=== PATIENT | female | born 1945 | race Caucasian/White ===

== ENCOUNTER → 2018-07-17 | Outpatient (CLI) | payer OTHER | END | disposition home or self-care (01) | LOC: PCVCCLINIC 13:17 | PROVIDERS: ATTEND Internal Medicine Cardiovascular Disease | DX: I10 Essential (primary) hypertension (principal); E78.00 Pure hypercholesterolemia, unspecified; Z82.49 Family history of ischemic heart disease and other diseases of the circulatory system | CPT/HCPCS: 36415; 80061; 93005; G0463 ==

== ENCOUNTER → 2018-07-21 | Outpatient (CLI) | payer OTHER ==
--- NOTE | 2018-07-21 15:56 | PCVCIMAG ---
APPROVED REPORT Study performed: 07/21/2018 13:50:30 Exam: Stress Echocardiogram Indication: Dyspnea, murmur, fam hx cad, 1st degree AV block Patient Location: Echo lab Stress Nurse: Lea Bernal RN Status: routine Ht: 5 ft 0 in HR: 62 bpm BP: 158/90 mmHg Rhythm: NSR, First degree AV Block Procedure The patient underwent an Exercise Stress Test using the Rik Protocol. Blood pressure, heart rate, and EKG were monitored. An Echocardiogram was performed by refurbish technician in four stages in quad fashion. At peak stress, four selected images were obtained and placed side by side with resting images for comparison. Stress Test Details Stress Test: Exercise stress testing was performed using a Rik protocol. HR Resting HR: 62 bpmMax Heart Rate (APMHR): 150 bpm Max HR Achieved: 164 bpmTarget HR (85% APMHR): 127 bpm % of APMHR: 109 Recovery HR: 86 bpm HR response to stress: Normal HR response to stress BP Resting BP: 158/90 mmHg Max BP: 160/90 mmHg Recovery BP: 140/80 mmHg BP response to stress: Normal blood pressure response to stress. ECG Resting ECG: Sinus Rhythm w/ 1st degree AV block Stress ECG: Sinus Rhythm ST Change: Normal Arrhythmia: None Recovery ECG: Sinus Rhythm, 1st degree AV block Recovery ST Change: Normal Recovery Arrhythmia: None Clinical Reason for Termination: Maximal effort, Dyspnea Stress Symptoms: Dyspnea Exercise duration: 5 min sec Highest Stage Achieved: Stage 2: 2.5 mph at 12% grade. Exercise capacity: 7 METs Overall Exercise Capacity for Age: below Average Scale: Sedentary Angina Score: None Pre-Stress Echo The resting Echocardiogram showed normal left ventricular contractility with an estimated Ejection Fraction of about 50-55%. Normal wall motion in all segments on baseline images. Post-Stress Echo The stress Echocardiogram showed normal left ventricular contractility with an estimated Ejection Fraction of about 60-65%. Normal augmentation of wall motion in all segments on post stress images. Clinical No clinical or ECG evidence for ischemia. Conclusion Clinical Response: Non-ischemic Exercise Capacity: Below Average Stress ECG Response: Non-ischemic Stress Echo Images: Non-ischemic The left ventricle is normal in size both the rest and stress images. Other Information Study Quality: Adequate <Conclusion> The left ventricle is normal in size both the rest and stress images.
== END | disposition home or self-care (01) ==
LOC: PCVCIMAG 13:00
PROVIDERS: ATTEND Internal Medicine Cardiovascular Disease
DX: R94.31 Abnormal electrocardiogram [ECG] [EKG] (principal); I44.0 Atrioventricular block, first degree; R06.09 Other forms of dyspnea; R01.1 Cardiac murmur, unspecified; I35.1 Nonrheumatic aortic (valve) insufficiency
CPT/HCPCS: 93325; 93351

== ENCOUNTER 2020-08-04 20:34 | Emergency (ER) | payer MEDICARE, OTHER ==
[~2020-08-04] VITALS: Ht 154.9 cm; Wt 70.0 kg
[2020-08-04 20:49] VITALS: BP 193/68
[2020-08-04] MEDS ORDERED: POLY10DR EACHEYE (21:39)
--- NOTE | 2020-08-04 21:40 | ED.ADGEN ---
Past Medical History Past Medical History: Hypertension Past Surgical History: (x2) Smoking Status: Never Smoker Alcohol Use: None Drug Use: None General Adult EDM: Chief Complaint: EYE PROBLEMS HPI: HPI: Patient is a 74 year old female who presents to the emergency department with complaints of bilateral eye itching and discomfort for the last 2 weeks. Patient states that her left eye is more uncomfortable than the right. She states this that there is a bump below her left eye, she denies any drainage from the bump. Patient denies any vision changes. She reports that her eyes have been crusting in the mornings. She denies any fever, cough, sore throat, nausea, vomiting, diarrhea, abdominal pain, rash, or headache. Patient states she first noticed the symptoms when she noticed that her dog was starting to have allergies. She currently rates the discomfort 8 out of 10 on the pain scale describes it as intense itching. She denies any alleviating factors. Review of Systems: Review of Systems: Complete ROS is negative unless otherwise noted in HPI. Physical Exam: PE: See Above Constitutional: Well developed, well nourished, no acute distress, non-toxic appearance. [] HENT: Normocephalic, atraumatic, bilateral external ears normal, nose normal. [] Eyes: PERRLA, EOMI, conjunctiva injected bilaterally, watery discharge bilaterally, there is a red hordeolum to the left lower eyelid Neck: Normal range of motion, no stridor. [] Cardiovascular:Heart rate regular rhythm Lungs & Thorax: Respirations even and unlabored, no retractions, no respiratory distress Skin: Warm, dry, no erythema, no rash. [] Extremities: No cyanosis, ROM intact, no edema. [] Neurologic: Alert and oriented X 3, no focal deficits noted. [] Psychologic: Affect normal, judgement normal, mood normal. [] Current Patient Data: Vital Signs: Vital Signs Date Time Temp Pulse Resp B/P (MAP) Pulse Ox O2 Delivery O2 Flow Rate FiO2 08/04/20 20:49 97.5 57 16 193/68 (109) Room Air 97.5 EKG: EKG: [] Heart Score: C/O Chest Pain: No Risk Scores: Score 0 - 3: 2.5% MACE over next 6 weeks - Discharge Home Score 4 - 6: 20.3% MACE over next 6 weeks - Admit for Clinical Observation Score 7 - 10: 72.7% MACE over next 6 weeks - Early Invasive Strategies Radiology/Procedures: Radiology/Procedures: [] Course & Med Decision Making: Course & Med Decision Making Pertinent Labs and Imaging studies reviewed. (See chart for details) [] Emilieon Disclaimer: Carey Disclaimer: This electronic medical record was generated, in whole or in part, using a voice recognition dictation system. Departure Departure Impression: Primary Impression: Acute allergic conjunctivitis of both eyes Additional Impressions: Hordeolum of left lower eyelid Conjunctivitis Disposition: HOME / SELF CARE / HOMELESS Condition: STABLE Referrals: WANDA ALEJANDRE MD (PCP) Patient Instructions: Allergic Conjunctivitis, [id number], Conjunctivitis (Viral and Bacterial), Sty Additional Instructions: Fill the prescription(s) and use as directed. Apply warm, moist washcloths to eyes needed for comfort. Recommend use of baby shampoo to wash eyelids. Follow- up with your primary care doctor in 1-2 days. Return to the emergency room if your symptoms worsen. Scripts Polymyxin B Sulf/Trimethoprim (POLYTRIM EYE DROPS) 10 Ml Drops 2 DROP EACHEYE Q6HRS for 7 Days, #10 ML 0 Refills Prov: DORENE BATES PIPE FINISHER 08/04/20 Problem Qualifiers Additional Impressions: Hordeolum of left lower eyelid Hordeolum type: externum Qualified Codes: H00.015 - Hordeolum externum left lower eyelid Conjunctivitis Conjunctivitis type: acute Acute conjunctivitis type: unspecified Laterality: bilateral Qualified Codes: H10.33 - Unspecified acute conjunctivitis, bilateral DORENE BATES PIPE FINISHER Aug 04, 2020 21:40
== END 2020-08-04 21:49 | disposition home or self-care (01) ==
LOC: ER 20:34
DX: H10.13 Acute atopic conjunctivitis, bilateral (principal); H00.015 Hordeolum externum left lower eyelid; I10 Essential (primary) hypertension; Z98.890 Other specified postprocedural states
CPT/HCPCS: 99283